=== PATIENT | female | born 1955 | race Two or more races ===

== ENCOUNTER 2022-09-09 08:42 | Outpatient (CLI) | payer MEDICARE, OTHER ==
[2022-09-09 12:21] LABS: BASOPHILS % (AUTO) 0.2 % (0.0-2.0); EOSINOPHILS % (AUTO) 0.8 % (0.0-6.0); HEMATOCRIT 37 % (33-45); HEMOGLOBIN 11.9 g/dL (11.5-14.8); LYMPHOCYTES # (AUTO) 1.8 K/uL (0.8-4.8); LYMPHOCYTES % (AUTO) 30.1 % (20.0-44.0); MEAN CORPUSCULAR HGB CONC 33 g/dl (31.0-36.0); MEAN CORPUSCULAR VOLUME 89 fL (82-100); MONOCYTES # (AUTO) 0.3 K/uL (0.1-1.30); MONOCYTES % (AUTO) 4.9 % (2.0-12.0); NEUTROPHILS # (AUTO) 3.9 K/uL (1.8-8.9); PLATELET COUNT (AUTO) 211 K/uL (150-450); RED BLOOD CELL COUNT(AUTO) 4.12 MIL/uL (4.0-5.2)
[2022-09-09 12:23] LABS: BILIRUBIN,URINE NEGATIVE (NEGATIVE); COLOR,URINE YELLOW (YELLOW); LEUKOCYTE ESTERASE ,URINE NEGATIVE (NEGATIVE); NITRITE, URINE NEGATIVE (NEGATIVE); PROTEIN,URINE NEGATIVE (NEGATIVE); UGLUCOSE NEGATIVE (NEGATIVE); UROBILINOGEN,URINE 0.2 EU/dL (0.2)
[2022-09-09 13:06] LABS: BACTERIA,URINE Few /HPF (None Seen); SQUAMOUS EPITHELIAL CELL,UR Few /HPF (None Seen); WBC,URINE 0-2 /HPF (0-3)
[2022-09-09 13:10] LABS: CALCIUM, SERUM 9.5 mg/dL (8.5-10.1); CREATININE 0.7 mg/dL (0.6-1.3); POTASSIUM 3.8 mmol/L (3.5-5.1)
== END 2022-09-09 23:59 | disposition home or self-care (01) ==
LOC: LAB 08:42
PROVIDERS: ATTEND Dentist Oral and Maxillofacial Surgery
DX: Z01.818 Encounter for other preprocedural examination (principal); Z20.822 Contact with and (suspected) exposure to COVID-19
CPT/HCPCS: 71046; 85025; 80048; 81001; 36415; 85730; U0003; C9803

== ENCOUNTER 2022-09-13 05:46 | Day surgery (SDC) | payer MEDICARE, OTHER ==
[~2022-09-13 05:46] MED LIST: ANESTHESIA TRAY IN PYXIS 1 EA TRAY MC ONE
[2022-09-13] MEDS ORDERED: DEXAMETHASONE SOD PHOSPHATE 10 MG/ML VIAL ONE (06:25)
[2022-09-13] MEDS ORDERED: VANCOMYCIN 1 GM VIAL ONE (06:25)
[2022-09-13] MEDS ORDERED: LIDOCAINE 2%-EPI 1:200,000 20 ML VIAL IJ ONE (06:26)
[2022-09-13] MEDS ORDERED: ROCURONIUM BROMIDE 50 MG/5 ML ONE (07:11)
[2022-09-13] MEDS ORDERED: FENTANYL PF 250MCG/5ML AMPUL ONE (07:11)
--- NOTE | 2022-09-13 07:30 | NUR ---
RN NOTE PATIENT WAS ALREADY TRANSPORTED TO OR FOR ORIF OF MAXILLA ENDORSED BY NEREIDA HASSAN.
[2022-09-13] MEDS ORDERED: OXYMETAZOLINE HCL NASAL SPRAY 30 ML BOTTLE NS ONE (07:34)
[2022-09-13] MEDS ORDERED: methylPREDNISolone ACETATE 80 MG/ML VIAL ONE (07:38)
[2022-09-13] MEDS ORDERED: BUPIVACAINE 0.25% 75 MG/30 ML VIAL ONE (07:38)
[2022-09-13] MEDS ORDERED: FENTANYL PF 100MCG/2ML AMPUL ONE (10:49)
[2022-09-13] MEDS ORDERED: HYDROMORPHONE 1 MG/1 ML DISP.SYRIN ONE (11:06)
[2022-09-13] MEDS ORDERED: HYDROMORPHONE 1 MG/1 ML DISP.SYRIN IV PRN (15:00)
--- NOTE | 2022-09-13 18:16 | NUR ---
MS DISCHARGE NOTES PATIENT IS STABLE FOR DISCHARGE TO HOME. S/P ORIF MAXILLA. V/S STABLE. ABLE TO TOLERATE CLEAR LIQUID DIET. PATIENT SIGNED DISCHARGE FORM. DISCHARGE INSTRUCTION AND MEDICATION WERE PROVIDED BY DR. ZAMORANO AT BEDSIDE. PATIENT AND DAUGHTER VERBALIZED UNDERSTANDING. PATIENT TO FOLLOW-UP WITH DR. ZAMORANO 10 DAYS AFTER DISCHARGE. REMOVED IV LINE. ASSISTED PATIENT TO THE LOBBY VIA WHEELCHAIR WITH DAUGHTER IN STABLE CONDITION AND LEFT VIA PRIVATE CAR. MD AND CHARGE NURSE ARE AWARE OF THE DISCHARGE.
== END 2022-09-13 19:00 | disposition home or self-care (01) ==
LOC: DS 05:46 → UNDOADMIN 06:00 → MED 06:00 → UNDODISIN 18:15 → DS 19:00
PROVIDERS: ATTEND Dentist Oral and Maxillofacial Surgery
DX: S02.609A Fracture of mandible, unspecified, initial encounter for closed fracture (principal); J01.00 Acute maxillary sinusitis, unspecified; Z20.822 Contact with and (suspected) exposure to COVID-19; S02.401A Maxillary fracture, unspecified side, initial encounter for closed fracture; J32.0 Chronic maxillary sinusitis; M86.69 Other chronic osteomyelitis, multiple sites; M85.60 Other cyst of bone, unspecified site; X58.XXXA Exposure to other specified factors, initial encounter; Y93.89 Activity, other specified; Y92.89 Other specified places as the place of occurrence of the external cause; Y99.8 Other external cause status; I10 Essential (primary) hypertension; Z98.890 Other specified postprocedural states; Z79.899 Other long term (current) drug therapy
CPT/HCPCS: 21461; 21215; 21047; 31030; 88312; 87081; 88311; 88305; 21210; J0690; J1100 ×2; J2704; J3010 ×2; J3370; J2405; J7030; C1713 ×3; J3490; J1170 ×2; G0378; J1040

== ENCOUNTER 2023-05-09 05:15 | Inpatient (IN) | payer MEDICARE, OTHER ==
[2023-05-09] VITALS (8 sets, daily range): BP systolic 121–162; BP diastolic 68–85; TEMP 98.2–98.7; O2SAT 94–98
[~2023-05-09] VITALS: Ht 157.5 cm; Wt 72.1 kg
[2023-05-09] MEDS ORDERED: dexaMETHasone SOD PHOSPHATE 10 MG/ML VIAL ONE (07:07)
[2023-05-09] MEDS ORDERED: VANCOMYCIN 1 GM VIAL ONE (07:08)
[2023-05-09] MEDS ORDERED: LIDOCAINE 2%-EPI 1:200,000 20 ML VIAL IJ ONE (07:08)
[2023-05-09] MEDS ORDERED: OXYMETAZOLINE HCL NASAL SPRAY 30 ML BOTTLE NS ONE (07:08)
[2023-05-09] MEDS ORDERED: FENTANYL PF 100MCG/2ML AMPUL ONE (07:13)
[2023-05-09] MEDS ORDERED: Magnesium 1 GM/2 ML VIAL ONE (07:13)
[2023-05-09] MEDS ORDERED: ROCURONIUM BROMIDE 50 MG/5 ML ONE (07:14)
[2023-05-09] MEDS ORDERED: FAMOTIDINE/PF INJ 20 MG/2 ML VIAL IV ONE (07:14)
[2023-05-09] MEDS ORDERED: HYDROMORPHONE 1 MG/1 ML DISP.SYRIN ONE (09:27)
[2023-05-09] MEDS ORDERED: IV NS 0.9% 1,000 ML IV PRN (11:00)
[2023-05-09] MEDS ORDERED: ACETAMINOPHEN 325 MG TABLET PO PRN ×2 (11:00→18:30)
[2023-05-09] MEDS ORDERED: ONDANSETRON HCL/PF 4 MG/2 ML VIAL IV PRN (11:00)
[2023-05-09] MEDS ORDERED: APIX5TAB PO (11:16)
[2023-05-09] MEDS ORDERED: SEMA7TAB PO (11:16)
[2023-05-09] MEDS ORDERED: ERGO500093 PO (11:16)
[2023-05-09] MEDS ORDERED: GABA600T12 PO (11:16)
[2023-05-09] MEDS ORDERED: PANT40TA2 PO (11:16)
[2023-05-09] MEDS: HYDROMORPHONE 1 MG/1 ML DISP.SYRIN IV PRN ×2 (15:03→20:14)
[2023-05-09] MEDS ORDERED: Z GUARD REMEDY 4 OZ OINT TP PRN (18:30)
[2023-05-09] MEDS ORDERED: ZOLPIDEM TARTRATE 5 MG TABLET PO PRN (18:30)
[2023-05-09] MEDS ORDERED: *INSULIN REGULAR(HUMULIN R)HUM 100 UNIT/ML VIAL SQ PRN (18:30)
[2023-05-09] MEDS ORDERED: HYDROCODONE/APAP 5/325MG TABLET PO PRN (18:30)
[2023-05-09] MEDS ORDERED: MAGNESIUM HYDROXIDE 30 ML UDC PO PRN (18:30)
[2023-05-09] MEDS ORDERED: DEXTROSE 50%-WATER 50 ML DISP.SYRIN IV PRN (18:30)
[2023-05-09] MEDS ORDERED: ONDANSETRON HCL/PF 4 MG/2 ML VIAL IVP PRN (18:30)
[2023-05-09] MEDS ORDERED: MAG HYDROX/AL HYDROX/SIMETH 30 ML UDC PO PRN (18:30)
[2023-05-09] MEDS ORDERED: GABAPENTIN 300 MG CAPSULE PO PRN (19:00)
[2023-05-09 20:00] LABS: CALCIUM, SERUM 7.5 mg/dL (8.5-10.1); CREATININE 0.5 mg/dL (0.6-1.3); POTASSIUM 4.1 mmol/L (3.5-5.1)
[2023-05-09] MEDS: VANCOMYCIN 1 GM in IV D5W 250ml IV SCH (20:13)
[2023-05-09] MEDS: BLOOD SUGAR DIAGNOSTIC 1 EACH STRIP VI SCH (21:17)
[2023-05-09] MEDS: INSULIN REGULAR, HUMAN 100 UNIT/ML 3 ML VIAL SQ PRN (21:20)
[2023-05-10] MEDS: HYDROMORPHONE 1 MG/1 ML DISP.SYRIN IV PRN (03:34)
[2023-05-10] MEDS: BLOOD SUGAR DIAGNOSTIC 1 EACH STRIP VI SCH ×2 (06:38→11:34)
[2023-05-10] MEDS: INSULIN REGULAR, HUMAN 100 UNIT/ML 3 ML VIAL SQ PRN (06:38)
[2023-05-10 06:42] LABS: BASOPHILS % (AUTO) 0.1 % (0.0-2.0); EOSINOPHILS % (AUTO) 0.1 % (0.0-6.0); HEMATOCRIT 32 % (33-45); HEMOGLOBIN 10.5 g/dL (11.5-14.8); LYMPHOCYTES # (AUTO) 1.4 K/uL (0.8-4.8); LYMPHOCYTES % (AUTO) 13.5 % (20.0-44.0); MEAN CORPUSCULAR HEMOGLOBIN 29 PG (26.0-33.0); MEAN CORPUSCULAR HGB CONC 33 g/dl (31.0-36.0); MEAN CORPUSCULAR VOLUME 89 fL (82-100); MONOCYTES # (AUTO) 0.8 K/uL (0.1-1.30); MONOCYTES % (AUTO) 7.1 % (2.0-12.0); NEUTROPHILS # (AUTO) 8.5 K/uL (1.8-8.9); NEUTROPHILS % (AUTO) 79.2 % (43.0-81.0); PLATELET COUNT (AUTO) 201 K/uL (150-450); RED BLOOD CELL COUNT(AUTO) 3.63 MIL/uL (4.0-5.2); RED CELL DISTRIBUTION WIDTH 14.7 % (11.5-15.0); WHITE BLOOD COUNT (AUTO) 10.7 K/uL (4.3-11.0)
[2023-05-10 07:00] VITALS: BP 126/69; TEMP 97.9; O2SAT 97
[2023-05-10 07:10] LABS: CALCIUM, SERUM 7.6 mg/dL (8.5-10.1); CREATININE 0.4 mg/dL (0.6-1.3); MAGNESIUM 2.2 mg/dL (1.8-2.4); PHOSPHORUS 2.6 mg/dL (2.5-4.9)
[2023-05-10] MEDS ORDERED: APIXABAN 5 MG TABLET PO SCH (09:00)
[2023-05-10] MEDS ORDERED: ERGOCALCIFEROL (VITAMIN D 2) 50,000 UNIT CAPSULE PO SCH (09:00)
[2023-05-10] MEDS ORDERED: PANTOPRAZOLE 40 MG TABLET.DR PO SCH (09:00)
[2023-05-10] MEDS: VANCOMYCIN 1 GM in IV D5W 250ml IV SCH (09:29)
== END 2023-05-10 16:10 | disposition home or self-care (01) | DRG 497 ==
LOC: DS 05:15 → MED 05:17
PROVIDERS: ADMIT Student in an Organized Health Care Education/Training Program; ATTEND Student in an Organized Health Care Education/Training Program
PROC: 0NPW04Z Removal of Internal Fixation Device from Facial Bone, Open Approach (ICD-10-PCS; principal; 2023-05-09)
PROC: 0WB30ZX Excision of Oral Cavity and Throat, Open Approach, Diagnostic (ICD-10-PCS; 2023-05-09)
PROC: 0NBR0ZX Excision of Maxilla, Open Approach, Diagnostic (ICD-10-PCS; 2023-05-09)
PROC: 0NBV0ZX Excision of Left Mandible, Open Approach, Diagnostic (ICD-10-PCS; 2023-05-09)
PROC: 0NBT0ZX Excision of Right Mandible, Open Approach, Diagnostic (ICD-10-PCS; 2023-05-09)
DX: T84.69XA Infection and inflammatory reaction due to internal fixation device of other site, initial encounter (principal); T84.7XXA Infection and inflammatory reaction due to other internal orthopedic prosthetic devices, implants and grafts, initial encounter; D64.9 Anemia, unspecified; E11.9 Type 2 diabetes mellitus without complications; E78.5 Hyperlipidemia, unspecified; I49.9 Cardiac arrhythmia, unspecified; Y83.8 Other surgical procedures as the cause of abnormal reaction of the patient, or of later complication, without mention of misadventure at the time of the procedure; Y92.009 Unspecified place in unspecified non-institutional (private) residence as the place of occurrence of the external cause; K12.30 Oral mucositis (ulcerative), unspecified; M27.49 Other cysts of jaw
CPT/HCPCS: 36415; 80048-TC; 82962-TC; 83735-TC; 84100-TC; 85025-TC; 87081-TC; A4223; G0378; J1100; J1170; J1815; J2405; J2704; J2765; J3010; J3370; J3475; J3490; J7030; J7060